=== PATIENT | female | born 1985 | race African-American/Black ===

== ENCOUNTER 2024-07-12 13:31 | Emergency (ER) | payer MEDICAID ==
[~2024-07-12] VITALS: Ht 170.2 cm; Wt 96.4 kg
[~2024-07-12 13:31] MED LIST: AMOX-457 PO; BACI28.410 TP
[2024-07-12 14:17] LABS: BASOPHILS % (AUTO) 0.7 % (0.0-2.0); EOSINOPHILS % (AUTO) 0.6 % (1.0-6.0); HEMATOCRIT 46.6 % (36-46); HEMOGLOBIN 15.3 g/dL (12.0-16.0); LYMPHOCYTES # (AUTO) 1.5 K/uL (1.0-4.8); LYMPHOCYTES % (AUTO) 30.4 % (22.0-44.0); MEAN CORPUSCULAR HEMOGLOBIN 29.4 pg (26.0-34.0); MEAN CORPUSCULAR HGB CONC 32.9 G/dL (31.0-37.0); MEAN CORPUSCULAR VOLUME 89 fL (80-100); MONOCYTES # (AUTO) 0.4 K/uL (0.1-1.0); MONOCYTES % (AUTO) 7.3 % (2.0-9.0); NEUTROPHILS # (AUTO) 3.1 K/uL (1.8-7.7); PLATELET COUNT (AUTO) 212 K/uL (150-450); RED BLOOD CELL COUNT(AUTO) 5.22 MIL/uL (4.00-5.20); RED CELL DISTRIBUTION WIDTH 14.9 % (11.5-14.5)
[2024-07-12 14:27] LABS: APPEARANCE,URINE HAZY (CLEAR); BILIRUBIN,URINE NEGATIVE (NEGATIVE); COLOR,URINE YELLOW (YELLOW); GLUCOSE, URINE (UA) NEGATIVE (NEGATIVE); KETONES,URINE NEGATIVE (NEGATIVE); LEUKOCYTE ESTERASE ,URINE NEGATIVE (NEGATIVE); NITRATE,URINE NEGATIVE (NEGATIVE); OCCULT BLOOD,URINE MODERATE (NEGATIVE); PH,URINE 6.5 (5.0-8.0); PROTEIN,URINE 30-70 mg/dL (NEGATIVE); SPECIFIC GRAVITIY, URINE 1.032 (1.003-1.030)
[2024-07-12 14:43] LABS: ANION GAP 8 mmol/L (8-16); CARBON DIOXIDE 29 mmol/L (22-29); CHLORIDE 101 mmol/L (98-107); CREATININE 0.81 mg/dL (0.60-1.30); GLOMERULAR FILTR. RATE CALC > 60 mL/min (>60); GLUCOSE,RANDOM 107 mg/dL (70-110); LIPASE 18 U/L (16-77); POTASSIUM 3.8 mmol/L (3.5-5.1); SODIUM SERUM 138 mmol/L (136-145); UREA NITROGEN, BLOOD 9 mg/dL (7-18)
[2024-07-12 14:49] LABS: WBC,URINE 0-2 /HPF (0-5)
[2024-07-12 14:52] LABS: BACTERIA,URINE Few /HPF (None Seen)
[2024-07-12 15:34] VITALS: BP 123/67; PULSE 71; RESP 18; TEMP 98.3; O2SAT 100
== END 2024-07-12 16:18 | disposition home or self-care (01) ==
LOC: EMS 13:31
DX: K59.00 Constipation, unspecified (principal); R10.30 Lower abdominal pain, unspecified; F17.210 Nicotine dependence, cigarettes, uncomplicated; F12.90 Cannabis use, unspecified, uncomplicated
CPT/HCPCS: 74018; 80048; 81001; 83690; 84703; 85025; 99284; 36415-L1; 36415-TC

== ENCOUNTER 2024-07-16 00:34 | Emergency (ER) | payer MEDICAID ==
[~2024-07-16] VITALS: Ht 170.2 cm; Wt 93.2 kg
[2024-07-16 01:17] VITALS: TEMP 97.8
[2024-07-16 05:50] VITALS: BP 141/90; PULSE 78; RESP 18; O2SAT 98
== END 2024-07-16 05:52 | disposition home or self-care (01) ==
LOC: EMS 00:34
DX: K59.00 Constipation, unspecified (principal); R10.84 Generalized abdominal pain; F17.210 Nicotine dependence, cigarettes, uncomplicated; F12.90 Cannabis use, unspecified, uncomplicated
CPT/HCPCS: 74176; 99284; Z7502

== ENCOUNTER 2024-08-11 09:11 | Emergency (ER) | payer MEDICAID, OTHER ==
[~2024-08-11] VITALS: Ht 170.2 cm; Wt 93.2 kg
[2024-08-11 09:13] VITALS: BP 127/77; PULSE 78; RESP 16; TEMP 98.2; O2SAT 98
[2024-08-11] MEDS ORDERED: METR500 PO (09:30)
[2024-08-11] MEDS ORDERED: PENI500T2 PO (09:30)
[2024-08-11] MEDS: ACETAMINOPHEN 500 MG TABLET PO ONE (09:39)
[2024-08-11] MEDS: FLUCONAZOLE 150 MG TABLET PO ONE (09:39)
== END 2024-08-11 09:46 | disposition home or self-care (01) ==
LOC: EMS 09:11
DX: K05.20 Aggressive periodontitis, unspecified (principal); N76.0 Acute vaginitis; F12.90 Cannabis use, unspecified, uncomplicated; F17.210 Nicotine dependence, cigarettes, uncomplicated
CPT/HCPCS: 99283

== ENCOUNTER 2024-10-16 21:51 | Emergency (ER) | payer OTHER ==
[~2024-10-16] VITALS: Ht 170.2 cm; Wt 90.9 kg
[~2024-10-16 21:51] MED LIST changes: -AMOX-457 PO; -BACI28.410 TP; +METR500 PO; +PENI500T2 PO
[2024-10-16 22:00] VITALS: TEMP 98.9
[2024-10-16 22:20] LABS: COVID AG,FIA SOURCE NASAL SWAB
[2024-10-16 22:46] LABS: BASOPHILS % (AUTO) 0.4 % (0.0-2.0); EOSINOPHILS % (AUTO) 0.3 % (1.0-6.0); HEMATOCRIT 41.4 % (36-46); HEMOGLOBIN 13.6 g/dL (12.0-16.0); LYMPHOCYTES # (AUTO) 1.9 K/uL (1.0-4.8); LYMPHOCYTES % (AUTO) 20.1 % (22.0-44.0); MEAN CORPUSCULAR HEMOGLOBIN 29.3 pg (26.0-34.0); MEAN CORPUSCULAR HGB CONC 32.9 G/dL (31.0-37.0); MEAN CORPUSCULAR VOLUME 89 fL (80-100); MONOCYTES % (AUTO) 10.7 % (2.0-9.0); NEUTROPHILS # (AUTO) 6.5 K/uL (1.8-7.7); NEUTROPHILS % (AUTO) 68.5 % (40.0-70.0); PLATELET COUNT (AUTO) 205 K/uL (150-450); RED BLOOD CELL COUNT(AUTO) 4.64 MIL/uL (4.00-5.20); RED CELL DISTRIBUTION WIDTH 14.5 % (11.5-14.5); WHITE BLOOD COUNT (AUTO) 9.5 K/uL (4.5-11.0)
[2024-10-16 22:59] LABS: ANION GAP 7 mmol/L (8-16); CARBON DIOXIDE 30 mmol/L (22-29); CHLORIDE 100 mmol/L (98-107); CREATININE 0.78 mg/dL (0.60-1.30); GLOMERULAR FILTR. RATE CALC > 60 mL/min (>60); GLUCOSE,RANDOM 84 mg/dL (70-110); POTASSIUM 3.7 mmol/L (3.5-5.1); SODIUM SERUM 137 mmol/L (136-145); UREA NITROGEN, BLOOD 12 mg/dL (7-18)
[2024-10-16 23:14] LABS: INFLUENZA TYPE A NEGATIVE FOR TYPE A (NEGATIVE); INFLUENZA TYPE B NEGATIVE FOR TYPE B (NEGATIVE)
[2024-10-16 23:15] LABS: SARS-COV2 (COVID) ANTIGEN,FIA Negative (Negative)
[2024-10-17] MEDS: ACETAMINOPHEN 500 MG TABLET PO ONE (00:45)
[2024-10-17 01:18] LABS: APPEARANCE,URINE CLEAR (CLEAR); BILIRUBIN,URINE NEGATIVE (NEGATIVE); COLOR,URINE LIGHT YELLOW (YELLOW); GLUCOSE, URINE (UA) NEGATIVE (NEGATIVE); KETONES,URINE NEGATIVE (NEGATIVE); LEUKOCYTE ESTERASE ,URINE NEGATIVE (NEGATIVE); NITRATE,URINE NEGATIVE (NEGATIVE); OCCULT BLOOD,URINE SMALL (NEGATIVE); PH,URINE 5.5 (5.0-8.0); PROTEIN,URINE NEGATIVE (NEGATIVE); SPECIFIC GRAVITIY, URINE 1.012 (1.003-1.030); UROBILINOGEN,URINE <=1.0 mg/dL (<=1.0)
[2024-10-17 01:28] LABS: HCG,QUAL URINE NEGATIVE (NEGATIVE)
[2024-10-17 01:30] LABS: BACTERIA,URINE Rare /HPF (None Seen); RBC,URINE 0-2 /HPF (0-2); SQUAMOUS EPITHELIAL CELL,UR Few /LPF (None Seen); WBC,URINE 0-2 /HPF (0-5)
[2024-10-17 02:50] VITALS: BP 127/74; PULSE 73; RESP 20; O2SAT 100
== END 2024-10-17 02:57 | disposition home or self-care (01) ==
LOC: EMS 21:51
DX: R51.9 Headache, unspecified (principal); F12.90 Cannabis use, unspecified, uncomplicated; Z20.822 Contact with and (suspected) exposure to COVID-19
CPT/HCPCS: 70450; 80048; 81001; 84703; 85025; 87804; 99284

== ENCOUNTER 2025-07-23 13:43 | Emergency (ER) | payer OTHER ==
[~2025-07-23] VITALS: Ht 170.2 cm; Wt 102.3 kg
[2025-07-23 13:57] VITALS: TEMP 98
[2025-07-23 16:49] VITALS: BP 120/88; PULSE 87; RESP 18; O2SAT 99
== END 2025-07-23 18:40 | disposition left against medical advice (07) ==
LOC: EMS 13:43
DX: G43.909 Migraine, unspecified, not intractable, without status migrainosus (principal); Z53.21 Procedure and treatment not carried out due to patient leaving prior to being seen by health care provider